=== PATIENT | male | born 1960 | race Caucasian/White ===

== ENCOUNTER 2016-04-11 09:41 | Emergency (ER) | payer BC, OTHER ==
[~2016-04-11] VITALS: Ht 185.4 cm; Wt 105.8 kg
[~2016-04-11 09:41] MED LIST: ASCO500T16 PO; B-COTAB18 PO; CLR10 PO; MECL1TAB42 PO; [UNRECOGNIZED DRUG - CODE] PEG; testosterone booster PO
[2016-04-11 09:46] VITALS: TEMP 36.5; Ht 185.4 cm; Wt 105.8 kg
[2016-04-11 11:52] VITALS: BP 155/105; PULSE 72; O2SAT 95
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
== END 2016-04-11 11:53 | disposition home or self-care (01) ==
LOC: C.EDB 09:43
DX: T22.231A Burn of second degree of right upper arm, initial encounter (principal); T31.0 Burns involving less than 10% of body surface; G47.30 Sleep apnea, unspecified; F17.200 Nicotine dependence, unspecified, uncomplicated; X04.XXXA Exposure to ignition of highly flammable material, initial encounter; Y93.H3 Activity, building and construction; Y92.214 College as the place of occurrence of the external cause; Y99.0 Civilian activity done for income or pay

== ENCOUNTER 2016-08-21 16:43 | Emergency (ER) | payer BC, OTHER ==
[~2016-08-21] VITALS: Ht 185.4 cm; Wt 96.3 kg
[~2016-08-21 16:43] MED LIST changes: -[UNRECOGNIZED DRUG - CODE] PEG; -testosterone booster PO
[2016-08-21 16:50] VITALS: Ht 185.4 cm; Wt 96.3 kg
--- NOTE | 2016-08-21 17:37 | DIAGNOSTIC IMAGING REPORT ---
CERVICAL SPINE CT CT DOSE: 1770.98 mGy.cm HISTORY: Pain Pt c/o C4 pain TECHNIQUE: Multiaxial CT images of the cervical spine were performed and reformatted in the sagittal and coronal plane without the use of contrast. COMPARISON: None. FINDINGS: No fractures. No subluxation. Prevertebral soft tissues and the C1-C2 interval are intact. No pneumothorax. Mild degenerative disc change C5-C6. IMPRESSION: No fractures within the cervical spine. Mild degenerative disc change C5-C6. Otherwise negative study Electronically signed by: Ankush Nunez M.D. 08/21/2016 5:35 PM Dictated Date/Time: 08/21/2016 5:33 PM
--- NOTE | 2016-08-21 17:39 | DIAGNOSTIC IMAGING REPORT ---
THORACIC SPINE CT CT DOSE: HISTORY: Pain Pt c/o T10 pain TECHNIQUE: Multiaxial CT images of the thoracic spine were performed and reformatted in the sagittal and coronal plane without the use of contrast. COMPARISON: None. FINDINGS: No fractures. No subluxation. Paraspinal soft tissues are unremarkable. Minimal/mild degenerative disc change. IMPRESSION: No fractures within the thoracic spine. Minimal/mild degenerative degenerative disc change. Electronically signed by: Ankush Nunez M.D. 08/21/2016 5:38 PM Dictated Date/Time: 08/21/2016 5:36 PM
[2016-08-21 18:20] VITALS: BP 112/78; PULSE 64; TEMP 36.9; O2SAT 94
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
== END 2016-08-21 18:21 | disposition home or self-care (01) ==
LOC: EDBD 16:43 → C.EDC 16:44
DX: M54.2 Cervicalgia (principal); R51 Headache; F41.9 Anxiety disorder, unspecified; F32.9 Major depressive disorder, single episode, unspecified; G47.30 Sleep apnea, unspecified; Z83.79 Family history of other diseases of the digestive system; Z84.89 Family history of other specified conditions; V43.52XA Car driver injured in collision with other type car in traffic accident, initial encounter; F17.200 Nicotine dependence, unspecified, uncomplicated

== ENCOUNTER → 2016-09-22 | Outpatient (CLI) | payer OTHER, BC ==
--- NOTE | 2016-09-22 10:41 | DIAGNOSTIC IMAGING REPORT ---
CERVICAL SPINE MRI CLINICAL HISTORY: 55-year-old male with history of cervical spine pain. TECHNIQUE: Multiplanar multisequence MRI of the cervical spine was performed without the use of contrast. COMPARISON: CT from 08/21/2016. FINDINGS: Vertebral bodies demonstrate normal height, alignment, and bone marrow signal intensity. Intervertebral disc height loss at C5-6 with the remainder of the cervical levels preserved. No increased signal intensity within the disc spaces. Mild degenerative changes at C5-6 and C6-7, where there are small disc osteophyte complexes resulting in mild effacement of the ventral thecal sac. Additional degenerative changes as below: C2-C3: Normal. C3-C4: Asymmetric left uncovertebral and facet hypertrophy result in mild left neural foraminal narrowing. No spinal canal narrowing. C4-C5: Normal. C5-C6: Disc osteophyte complex results in mild effacement of the ventral thecal sac slightly greater on the right. This causes mild spinal cord contouring. No neural foraminal narrowing. C6-C7: Disc osteophyte complex effaces the ventral thecal sac, greater on the left, where in combination with uncovertebral hypertrophy, mild left neural foraminal narrowing results. No significant contouring of the spinal cord. No impingement. C7-T1: Normal. Spinal cord maintains signal intensity despite eccentric right-sided contouring at C5-6 as described above. Paraspinal soft tissues normal. Limited intracranial evaluation normal. IMPRESSION: 1. Degenerative changes at C5-6 and C6-7 with mild spinal stenosis greatest at C5-6. 2. Mild left neural foraminal narrowing at C3-4 and C6-7. Electronically signed by: Duran Correa 09/22/2016 10:39 AM Dictated Date/Time: 09/22/2016 10:32 AM
== END | disposition home or self-care (01) ==
LOC: C.MRI 08:39
PROVIDERS: ATTEND Orthopaedic Surgery Orthopaedic Surgery of the Spine
DX: M50.322 Other cervical disc degeneration at C5-C6 level (principal); M50.323 Other cervical disc degeneration at C6-C7 level

== ENCOUNTER → 2017-06-03 | Day surgery (SDC) | payer BC, OTHER ==
[2017-05-19 07:50] VITALS: Ht 185.4 cm; Wt 102.3 kg
[~2017-06-03] VITALS: Ht 185.4 cm; Wt 102.3 kg
[~2017-06-03] MED LIST changes: -ASCO500T16 PO; -B-COTAB18 PO; -CLR10 PO; +LIDOCAINE HCL 2% 2 ML VIAL (20MG/ML) ONE; -MECL1TAB42 PO; +ONDANSETRON INJ 2 MG/ML 2 ML VIAL ONE; +PROPOFOL IV EMULSION 10 MG/ML 20 ML VIAL IV ONE; +SODIUM CHLORIDE 0.9% 500ML 500 ML IV ONE
--- NOTE | 2017-06-03 11:02 | Endo History and Physical ---
History & Physical Date of Service: Jun 03, 2017. Chief Complaint: history of polyps Referring Physician: Stella GARCIA History of Present Illness 56 yo CM who presents for colonoscopy secondary to history of colon polyps. Past Medical History Anxiety, Sleep Apnea, Other, Depression Past Surgical History Hx Cardiac Surgery: No Hx Internal Defibrillator: No Hx Pacemaker: No Hx Abdominal Surgery: Yes (UMBILICAL HERNIA) Hx Post-Op Nausea and Vomiting: No Hx Cancer Surgery: No Hx Thoracic Surgery: No Hx Orthopedic: Yes (RT/LEFT ARM FX REPAIR) Hx Urinary Tract Surgery: No Family History Polyp Social History Smoking Status: Heavy Tobacco Smoker Hx Substance Use: Yes (MARIJUANA OCCASIONALLY) Hx Alcohol Use: No Allergies Coded Allergies: Alprazolam (Verified Allergy, Unknown, PERIODS OF LOSS TIME, 06/03/17) Current Medications Reported Home Medications Medications Dose Route/Sig Max Daily Dose Days Date Category No Active Prescriptions or Reported Medications Rx Vital Signs Weight (Kilograms): 102.27 Height (Feet): 6 Height (Inches): 1 Date Time Temp Pulse Resp B/P (MAP) Pulse Ox O2 Delivery O2 Flow Rate FiO2 06/03/17 10:18 36.5 66 18 144/90 (108) 97 Room Air Physical Exam General Appearance: WD/WN, no apparent distress Respiratory/Chest: Auscultation: breath sounds normal Cardiovascular: Heart Auscultation: RRR Abdomen: Bowel Sounds: normal Inspection & Palpation: soft, non-distended, no tenderness, guarding & rebound Assessment and Plan Assessment: 56 yo CM who presents for colonoscopy secondary to history of colon polyps. Plan: Proceed with colonoscopy.
--- NOTE | 2017-06-03 11:54 | GI REPORT ---
Procedure Date: 06/03/2017 11:14 AM THIS REPORT HAS BEEN AMENDED Addendum Number: 1 Addendum Date: 06/03/2017 11:59:16 AM No specimens were collected on this exam, and therefore, no pathology is pending. Repeat colonoscopy in 10 years Procedure: Colonoscopy Indications: Screening for colorectal malignant neoplasm Medicines: Monitored Anesthesia Care Complications: No immediate complications. Estimated Blood Loss: Estimated blood loss: none. Procedure: Pre-Anesthesia Assessment: - Prior to the procedure, a History and Physical was performed, and patient medications and allergies were reviewed. The patient's tolerance of previous anesthesia was also reviewed. The risks and benefits of the procedure and the sedation options and risks were discussed with the patient. All questions were answered, and informed consent was obtained. Prior Anticoagulants: The patient has taken no previous anticoagulant or antiplatelet agents. ASA Grade Assessment: II - A patient with mild systemic disease. After reviewing the risks and benefits, the patient was deemed in satisfactory condition to undergo the procedure. After I obtained informed consent, the scope was passed under direct vision. Throughout the procedure, the patient's blood pressure, pulse, and oxygen saturations were monitored continuously. The scope was introduced through the anus and advanced to the terminal ileum. The colonoscopy was performed without difficulty. The patient tolerated the procedure well. The quality of the bowel preparation was good. The terminal ileum, ileocecal valve, appendiceal orifice, and rectum were photographed. Findings: The perianal and digital rectal examinations were normal. Non-bleeding internal hemorrhoids were found during retroflexion. The hemorrhoids were small. The exam was otherwise without abnormality. Impression: - Non-bleeding internal hemorrhoids. - The examination was otherwise normal. - No specimens collected. Recommendation: - Resume previous diet. - Continue present medications. - Repeat colonoscopy for surveillance based on pathology results. - Return to primary care physician as previously scheduled. Elan Renner, DO 06/03/2017 11:54:16 AM This report has been signed electronically. Note Initiated On: 06/03/2017 11:14 AM I attest to the content of the Intraoperative Record and orders documented therein, exceptions below Elandejan Renner, DO 06/03/2017 11:59:54 AM This report has been signed electronically.
--- NOTE | 2017-06-03 11:55 | Discharge Instructions ---
Endoscopy Patient Instructions Date / Procedure(s) Performed Jun 03, 2017. Colonoscopy Allergy Information Coded Allergies: Alprazolam (Verified Allergy, Unknown, PERIODS OF LOSS TIME, 06/03/17) Discharge Date / Findings Jun 03, 2017. Internal hemorrhoids Medication Instructions OK to resume all medications today as prescribed Reported Home Medications Medications Dose Route/Sig Max Daily Dose Days Date Category No Active Prescriptions or Reported Medications Rx Provider Instructions Activity Restrictions - No exercising or heavy lifting for 24 hours. - Do not drink alcohol the day of the procedure. - Do not drive a car or operate machinery until the day after the procedure. - Do not make any important decisions or sign important papers in 24 hours after the procedure. Following Day: - Return to full activity which may include returning to work/school. Diet Start your diet with liquids and light foods (jello, soup, juice, toast). Then eat your usual diet if not nauseated. Treatment For Common After Affects For mild abdominal pain, bloating, or excessive gas: - Rest - Eat lightly - Lie on right side Follow-Up Information Follow-up with Stella GARCIA as scheduled Anesthesia Information What You Should Know You have had a procedure that required some medicine to reduce anxiety and discomfort. This treatment is called moderate sedation. After receiving the treatment, you may be sleepy, but you will be able to breathe on your own. The effects of the treatment may last for several hours. Follow these instructions along with Activity/Diet recommendations noted above: * Do NOT do anything where dizziness or clumsiness would be dangerous. * Rest quietly at home today, then you can be up and about tomorrow. * Have a responsible person stay with you the rest of today. * You may have had an I.V. today. If so, you may take the dressing off later today. Recommendations Call your doctor if: * Trouble breathing * Continuous vomiting for more than 24 hours * Temperature above 101 degrees * Severe abdominal pain or bloating * Pain not relieved by pain medicine ordered * There is increased drainage or redness from any incision * A large amount of rectal bleeding greater than 2-3 tablespoons. (If you had a polyp/s removed or have hemorrhoids, a small amount of blood - from the rectum is to be expected.) * You have any unanswered questions or concerns. IN THE EVENT OF A SERIOUS EMERGENCY, GO TO THE NEAREST EMERGENCY ROOM Your discharge instructions were prepared by provider Elan Renner. Patient Instructions Signature Page Singh Vogt Patient (or Guardian) Signature/Date: I have read and understand the instructions given to me by my caregivers. Caregiver/RN/Doctor Signature/Date: The above-named patient and/or guardian has received patient instructions on this date. + Original Patient Signature Page (only) stays with chart. Please make copy for patient.
--- NOTE | 2017-06-03 12:23 | Anesthesiology Progress Note ---
Anesthesia Post Op Note Date & Time Jun 03, 2017 at 12:23 Vital Signs Pain Intensity: 0 Vital Signs Past 12 Hours Date Time Temp Pulse Resp B/P (MAP) Pulse Ox O2 Delivery O2 Flow Rate FiO2 06/03/17 12:07 59 18 133/81 (98) 96 Room Air 06/03/17 11:53 70 18 110/52 (71) 95 Room Air 06/03/17 10:18 36.5 66 18 144/90 (108) 97 Room Air Notes Mental Status: alert / awake / arousable, participated in evaluation Pt Amnestic to Procedure: Yes Nausea / Vomiting: adequately controlled Pain: adequately controlled Airway Patency, RR, SpO2: stable & adequate BP & HR: stable & adequate Hydration State: stable & adequate Anesthetic Complications: no major complications apparent
[2017-06-03 12:26] VITALS: BP 154/94; PULSE 62; O2SAT 97
== END | disposition home or self-care (01) ==
LOC: C.GI 09:47
PROVIDERS: ATTEND Internal Medicine
DX: Z12.11 Encounter for screening for malignant neoplasm of colon (principal); K64.8 Other hemorrhoids; Z86.010 Personal history of colon polyps; G47.33 Obstructive sleep apnea (adult) (pediatric); F41.9 Anxiety disorder, unspecified; F32.9 Major depressive disorder, single episode, unspecified; F17.200 Nicotine dependence, unspecified, uncomplicated; Z98.890 Other specified postprocedural states; Z79.899 Other long term (current) drug therapy